=== PATIENT | male | born 1990 ===

== ENCOUNTER 2020-11-06 05:45 | Day surgery (SDC) | payer OTHER ==
[2020-11-06] MEDS ORDERED: ULTRAM50 MG PO (08:58)
[2020-11-06] MEDS ORDERED: KETO10TA2 PO (09:00)
[2020-11-06] MEDS ORDERED: DERMOPLAST PAIN78 GM TOP (09:01)
== END 2020-11-06 15:45 | disposition home or self-care (01) ==
LOC: CIR.AMB 05:45
PROVIDERS: ATTEND Surgery
DX: K62.82 Dysplasia of anus (principal); A63.0 Anogenital (venereal) warts; Z20.822 Contact with and (suspected) exposure to COVID-19